=== PATIENT | male | born 1985 | race Caucasian/White ===

== ENCOUNTER → 2020-08-14 | Outpatient (CLI) | payer OTHER | LOC: MRI 09:36 | PROVIDERS: ATTEND Nurse Practitioner | DX: M25.462 Effusion, left knee (principal); M22.42 Chondromalacia patellae, left knee; G89.29 Other chronic pain ==

== ENCOUNTER → 2020-08-14 | Outpatient (CLI) | payer OTHER | LOC: CAT 09:52 | PROVIDERS: ATTEND Nurse Practitioner | DX: Z13.6 Encounter for screening for cardiovascular disorders (principal); I25.10 Atherosclerotic heart disease of native coronary artery without angina pectoris; E78.00 Pure hypercholesterolemia, unspecified ==